=== PATIENT | male | born 1960 | race Caucasian/White ===

== ENCOUNTER → 2017-05-14 10:47 | Outpatient (CLI) | payer OTHER | END | disposition home or self-care (01) | LOC: D.US 10:47 | DX: M79.652 Pain in left thigh (principal) ==

== ENCOUNTER 2017-08-25 19:29 | Emergency (ER) | payer OTHER | END 2017-08-25 21:35 | disposition home or self-care (01) | LOC: D.ER 19:29 | DX: B02.9 Zoster without complications (principal); H57.12 Ocular pain, left eye; F17.200 Nicotine dependence, unspecified, uncomplicated ==

== ENCOUNTER 2017-09-15 09:41 | Emergency (ER) | payer OTHER | END 2017-09-15 11:13 | disposition home or self-care (01) | LOC: D.ER 09:41 | DX: B02.29 Other postherpetic nervous system involvement (principal); Z87.898 Personal history of other specified conditions ==